=== PATIENT | male | born 1990 | race Caucasian/White ===

== ENCOUNTER 2019-12-02 15:26 | Emergency (ER) | payer BC, OTHER ==
--- NOTE | 2019-12-02 15:50 | CR ---
Right 5th finger: 3 views centered to the right 5th finger were obtained. Comparison: No prior finger exam. Soft tissue swelling is seen distally. Joint spaces are preserved. No acute fracture or other abnormality is appreciated. Impression: 1. Soft tissue swelling. 2. No bony abnormality is identified on right 5th finger study. Diagnostic code #2 This report was dictated in MDT
--- NOTE | 2019-12-02 16:30 | EDM.PDOC ---
ED HPI GENERAL MEDICAL PROBLEM - General Chief Complaint: Upper Extremity Injury/Pain Stated Complaint: SMASHED FINGER Time Seen by Provider: 12/02/19 15:27 Source of Information: Reports: Patient History Limitations: Reports: No Limitations - History of Present Illness INITIAL COMMENTS - FREE TEXT/NARRATIVE: He presents to the emergency room with a chief complaint of smashing his left little finger in a ranch and developing a subungual hematoma. Onset: Today Duration: Day(s): Location: Reports: Upper Extremity, Right Quality: Reports: Ache Severity: Mild Improves with: Reports: None Worsens with: Reports: None Associated Symptoms: Reports: No Other Symptoms right fifth digit Pain Score (Numeric/FACES): 5 - Related Data Allergies Allergy/AdvReac Type Severity Reaction Status Date / Time tetanus and diphtheria Allergy Nausea and Verified 12/02/19 15:47 toxoids Vomiting Home Meds: Home Meds . [No Known Home Meds] 12/02/19 [History] Past Medical History HEENT History: Reports: None Cardiovascular History: Reports: None Respiratory History: Reports: None Gastrointestinal History: Reports: None Genitourinary History: Reports: None Musculoskeletal History: Reports: None Neurological History: Reports: None Psychiatric History: Reports: None Endocrine/Metabolic History: Reports: None Hematologic History: Reports: None Immunologic History: Reports: None Oncologic (Cancer) History: Reports: None Dermatologic History: Reports: None - Infectious Disease History Infectious Disease History: Reports: None - Past Surgical History Head Surgeries/Procedures: Reports: None HEENT Surgical History: Reports: Tonsillectomy Cardiovascular Surgical History: Reports: None Respiratory Surgical History: Reports: None GI Surgical History: Reports: None Male Surgical History: Reports: None Endocrine Surgical History: Reports: None Neurological Surgical History: Reports: None Musculoskeletal Surgical History: Reports: None Oncologic Surgical History: Reports: None Dermatological Surgical History: Reports: None Social & Family History - Family History Family Medical History: Noncontributory - Tobacco Use Smoking Status *Q: Never Smoker Second Hand Smoke Exposure: No - Caffeine Use Caffeine Use: Reports: Coffee - Recreational Drug Use Recreational Drug Use: No Review of Systems - Review of Systems Review Of Systems: See Below Constitutional: Reports: No Symptoms Eyes: Reports: No Symptoms Ears: Reports: No Symptoms Nose: Reports: No Symptoms Mouth/Throat: Reports: No Symptoms Respiratory: Reports: No Symptoms Cardiovascular: Reports: No Symptoms GI/Abdominal: Reports: No Symptoms Genitourinary: Reports: No Symptoms Musculoskeletal: Reports: No Symptoms Skin: Reports: No Symptoms Neurological: Reports: No Symptoms Psychiatric: Reports: No Symptoms ED EXAM, GENERAL - Physical Exam Exam: See Below Free Text/Narrative:: Patient sustained to his right little finger being smashed with a tool. Patient has a subungual hematoma. All x-rays are normal at this time. Patient a fenestration performed and removal of the blood Read procedure well General Appearance: Alert, WD/WN, No Apparent Distress Nose: Normal Inspection, Normal Mucosa Throat/Mouth: Normal Inspection, Normal Lips Head: Atraumatic, Normocephalic Neck: Normal Inspection, Supple Respiratory/Chest: No Respiratory Distress, Lungs Clear Cardiovascular: Normal Peripheral Pulses GI/Abdominal: Normal Bowel Sounds (Male) Exam: Deferred Rectal (Males) Exam: Deferred Back Exam: Normal Inspection Extremities: Other (Right submandibular hematoma) Lymphatic: No Adenopathy ED TRAUMA EXTREMITY PROCEDURES - Additional/Other Procedure(s) Other (Free Text) Procedure(s): Fenestration was performed on the right nail. Approximately 5 cc of blood was expelled patient symptoms subsided patient will be discharged home Accumulation of blood status post fenestration from her right sub-ungual hematoma of the right little finger/ Course - Vital Signs Last Recorded V/S: Last Vital Signs Temp 98.4 F 12/02/19 15:45 Pulse 77 12/02/19 15:45 Resp 18 12/02/19 15:45 BP 138/72 12/02/19 15:45 Pulse Ox 97 12/02/19 15:45 Departure - Departure Time of Disposition: 16:31 Disposition: Home, Self-Care 01 Condition: Good Clinical Impression: Subungual hematoma of finger of left hand - Discharge Information Instructions: Subungual Hematoma, [id number] Referrals: PCP,None [Primary Care Provider] - Sepsis Event Note - Evaluation Sepsis Screening Result: No Definite Risk - Focused Exam Vital Signs: Vital Signs Temp Pulse Resp BP Pulse Ox 12/02/19 15:45 98.4 F 77 18 138/72 97 Date Exam was Performed: 12/02/19 Time Exam was Performed: 16:25
== END 2019-12-02 16:41 | disposition home or self-care (01) ==
LOC: MW.ED 15:26
DX: S60.151A Contusion of right little finger with damage to nail, initial encounter (principal); Z88.7 Allergy status to serum and vaccine; W23.1XXA Caught, crushed, jammed, or pinched between stationary objects, initial encounter
CPT/HCPCS: 11740; 73140-26-F9; 73140-F9; 99282; 99283-25